=== PATIENT | female | born 1940 | race Caucasian/White ===

== ENCOUNTER 2016-05-09 13:19 | Emergency (ER) | payer OTHER, MEDICARE ==
[~2016-05-09] VITALS: Ht 169.2 cm; Wt 76.4 kg
[2016-05-09 13:33] VITALS: TEMP 36.6; Ht 169.2 cm; Wt 76.4 kg
[2016-05-09] MEDS ORDERED: HYDR50TA3 PO (14:12)
[2016-05-09] MEDS ORDERED: LPT10 PO (14:13)
[2016-05-09] MEDS ORDERED: POTA10CA28 PO ×2 (14:13)
[2016-05-09] MEDS ORDERED: XRL10 PO (14:13)
[2016-05-09] MEDS ORDERED: OXAP600T PO (14:13)
[2016-05-09] MEDS ORDERED: SODIUM CHLORIDE 0.9% 500ML 500 ML IV STA (14:39)
[2016-05-09 14:51] LABS: BASO % 0.2 %; BASO ABS # 0.03 K/uL (0-0.2); COMPLETE YES; EOS % 0.2 %; HEMATOCRIT 29.2 % (37-47); IG% 0.3 %; LYMPH % 14.6 %; LYMPH ABS # 1.86 K/uL (1.2-3.4); MEAN CELL VOLUME 86.1 fL (80-100); MEAN CORPUSCULAR HEMOGLOBIN 28.6 pg (25-34); MEAN CORPUSCULAR HGB CONC 33.2 g/dl (32-36); MEAN PLATELET VOLUME 9.1 fL (7.4-10.4); MONO % 9.6 %; NEUT % 75.1 %; PLATELET COUNT 392 K/uL (130-400); RED BLOOD COUNT 3.39 M/uL (4.2-5.4); WHITE BLOOD COUNT 12.72 K/uL (4.8-10.8)
[2016-05-09 14:55] LABS: BUN/CREATININE RATIO 12.3 (10-20); CALCIUM 9.2 mg/dl (8.5-10.1); CREATININE 0.81 mg/dl (0.60-1.20); POTASSIUM 3.4 mmol/L (3.5-5.1)
[2016-05-09 15:06] LABS: INR 1.2 (0.9-1.1); PARTIAL THROMBOPLASTIN RATIO 1.2; PROTHROMBIN TIME (PATIENT) 13.2 SECONDS (9.0-12.0)
[2016-05-09] MEDS ORDERED: MECLIZINE HCL 25 MG TAB PO STA (16:47)
[2016-05-09 19:27] LABS: HEMATOCRIT 28.1 % (37-47)
[2016-05-09] MEDS ORDERED: MECLIZINE HCL 25 MG TAB PO ONE (20:57)
[2016-05-09 21:05] VITALS: BP 143/67; PULSE 79; O2SAT 94
--- NOTE | 2016-05-09 22:02 | EMERGENCY ROOM VISIT NOTE ---
History Report prepared by Yasemin: Karthik Bailon Under the Supervision of: Dr. Connor Dumont M.D. First contact with patient: 14:20 Chief Complaint: ED VAG BLEEDING Stated Complaint: BLEEDING History of Present Illness The patient is a 75 year old female who presents to the Emergency Room with complaints of worsening vaginal bleeding since March. The bleeding was initially light when at onset. The patient went to [facility] in March after the onset of vaginal bleeding. At that time she was also experiencing shortness of breath, as well as cough and rhinorrhea. She had a CT Chest at [place] and was diagnosed with a PE. The patient is not sure which lung contained the PE. She was also diagnosed with a left leg DVT. She was transferred to [place] from [place], where she had an MRI, multiple CTs, and a pelvic ultrasound. The ultrasound showed a pelvic mass. She had a biopsy, however the patient has not been given the results and is not sure if the mass is malignant. She is scheduled to see Dr. Mcconnell (BALLING HEAD TENDER) in three days. The patient was started on Xarelto for the clots, and notes that the vaginal bleeding has been worse since. Her last dose of Xarelto was at 0800 this morning. She has been saturating at least 4 pads every 24 hours. The blood is dark and contains clots. She has also been becoming gradually weaker and experiencing episodes of lightheadedness for the past two weeks. The patient denies fevers but does feel cold. She denies chest pain. She does have pain in the lower abdomen / pelvis area. Source of History: patient Onset: March Position: other (vaginal) Quality: other (bleeding) Timing: worsening Modifying Factors (Worsening): other (Xarelto) Associated Symptoms: + abdominal pain, + weakness, No chest pain, No fevers Review of Systems See HPI for pertinent positives & negatives. A total of 10 systems reviewed and were otherwise negative. Past Medical & Surgical Medical Problems: (1) DVT (deep venous thrombosis) (2) Pelvic mass (3) Pulmonary embolism Family History No pertinent family history Social History Smoking Status: Never Smoker Current/Historical Medications Scheduled Atorvastatin (Atorvastatin Calcium), 10 MG PO DAILY Hydrochlorothiazide (Hctz), 25 MG PO DAILY Oxaprozin (Daypro), 1,200 MG PO PRN Potassium Chloride (Micro-K Ext Rel), 20 MEQ PO QAM Potassium Chloride (Micro-K Ext Rel), 10 MEQ PO QPM Rivaroxaban (Xarelto), 15 MG PO BID Allergies Coded Allergies: BEE STING (Unverified Allergy, Severe, UNKNOWN, 05/09/16) Physical Exam Vital Signs Date Time Temp Pulse Resp B/P Pulse Ox O2 Delivery O2 Flow Rate FiO2 05/09/16 21:05 79 20 143/67 94 05/09/16 19:36 72 20 134/64 96 Room Air 05/09/16 18:40 75 18 144/70 97 Room Air 05/09/16 16:48 73 16 143/65 98 05/09/16 15:44 77 16 136/68 98 Room Air 05/09/16 14:53 77 18 150/82 100 05/09/16 14:32 84 05/09/16 13:33 36.6 96 18 151/87 96 Room Air Physical Exam Constitutional: Vital signs reviewed. Eyes: Pupils are equal round reactive to light. Conjunctiva are noninjected. ENT: Pharynx is clear without erythema or exudate. Mucous membranes are moist. Neck supple without meningeal signs. Respiratory: Clear to auscultation bilaterally. Breath sounds are equal bilaterally. Cardiovascular: Regular rate and rhythm. No rubs or gallops. GI: Soft, nondistended.Tenderness in the lower abdomen without guarding. Bowel sounds are present. : There is about 10 CCs of dark blood pooling in the vault with clots, no signs of active bright-red bleeding. Musculoskeletal: No peripheral edema. No lower extremity tenderness. Integumentary: No cyanosis. Neurological: The patient is awake and alert. No focal deficits. Psychiatric: Normal affect. Medical Decision & Procedures Laboratory Results 05/09/16 14:20 Red Blood Count 3.39, Mean Corpuscular Volume 86.1, Mean Corpuscular Hemoglobin 28.6, Mean Corpuscular Hemoglobin Concent 33.2, Mean Platelet Volume 9.1, Neutrophils (%) (Auto) 75.1, Lymphocytes (%) (Auto) 14.6, Monocytes (%) (Auto) 9.6, Eosinophils (%) (Auto) 0.2, Basophils (%) (Auto) 0.2, Neutrophils # (Auto) 9.54, Lymphocytes # (Auto) 1.86, Monocytes # (Auto) 1.22, Eosinophils # (Auto) 0.03, Basophils # (Auto) 0.03 05/09/16 19:15 05/09/16 14:20 Test 05/09/16 14:20 White Blood Count 12.72 K/uL (4.8-10.8) Red Blood Count 3.39 M/uL (4.2-5.4) Hemoglobin 9.7 g/dL (12.0-16.0) Hematocrit 29.2 % (37-47) Mean Corpuscular Volume 86.1 fL (80-100) Mean Corpuscular Hemoglobin 28.6 pg (25-34) Mean Corpuscular Hemoglobin Concent 33.2 g/dl (32-36) Platelet Count 392 K/uL (130-400) Mean Platelet Volume 9.1 fL (7.4-10.4) Neutrophils (%) (Auto) 75.1 % Lymphocytes (%) (Auto) 14.6 % Monocytes (%) (Auto) 9.6 % Eosinophils (%) (Auto) 0.2 % Basophils (%) (Auto) 0.2 % Neutrophils # (Auto) 9.54 K/uL (1.4-6.5) Lymphocytes # (Auto) 1.86 K/uL (1.2-3.4) Monocytes # (Auto) 1.22 K/uL (0.11-0.59) Eosinophils # (Auto) 0.03 K/uL (0-0.5) Basophils # (Auto) 0.03 K/uL (0-0.2) RDW Standard Deviation 44.2 fL (36.4-46.3) RDW Coefficient of Variation 14.2 % (11.5-14.5) Immature Granulocyte % (Auto) 0.3 % Immature Granulocyte # (Auto) 0.04 K/uL (0.00-0.02) Prothrombin Time 13.2 SECONDS (9.0-12.0) Prothromb Time International Ratio 1.2 (0.9-1.1) Activated Partial Thromboplast Time 31.5 SECONDS (21.0-31.0) Partial Thromboplastin Ratio 1.2 Anion Gap 11.0 mmol/L (3-11) Est Creatinine Clear Calc Drug Dose 65.4 ml/min Estimated GFR () 83.5 Estimated GFR (Non- 72.1 BUN/Creatinine Ratio 12.3 (10-20) Calcium Level 9.2 mg/dl (8.5-10.1) Laboratory results as reviewed by me. Medications Administered Medications (Trade) Dose Ordered Sig/Mary Route Start Time Stop Time Status Last Admin Dose Admin Meclizine HCl (Antivert Tab) 25 mg NOW STAT PO 05/09/16 16:47 05/09/16 16:49 DC 05/09/16 21:02 25 MG ECG Indication: weakness Rate (beats per minute): 76 Rhythm: sinus rhythm Findings: nonspecific-ST abn (Anterior), PVC ED Course 1422: The patient was evaluated in room C4. A complete history and physical exam was performed. 1439: NSS 500 ml @ 999 mls/hr. 1524: Spoke with JULIETH Ng for Dr. Mcconnell. The patient was diagnosed with bilateral PEs on outpatient CT scan in [place] on April 21, as well as a left lower extremity DVT. She was transferred to [place] for a pelvic mass with vaginal bleeding. The patient had an MRI Pelvis which showed an 11.7 cm left ovarian mass as well as thickening of the endometrial stripe at 1.8 cm. 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 Hgb on april 24 was 11.5. She had a repeat CT Chest on April 25 which showed no evidence of PE. She recommended to me to med-call number to speak with hair blender-onc physician. 1535: Talked with the patient about the results. She stated that she would rather go home and follow up with [facility] on Thursday if they are not going to do anything for her. [facility] is being paged now. 1610: Discussed the case with Dr. Gonzalez, [facility]. They will call back. 1640: Dr. Gonzalez will accept the transfer. The attending physician that will admit the patient is Dr. Bazan. 1647: Meclizine 25 mg PO. 1715: The patient is hemodynamically stable. I discussed the plan for transfer at care at [place]. The patient is agreeable with the transfer. We are waiting on an ambulance to take her. 1855: Multiple ambulances have refused transport to [place]. We are waiting to hear from [place]. I updated her. 1949: I informed her of her second H&H. We are still waiting on an ambulance. 1999: An ambulance was found that will take her. Patient was updated. Medical Decision This is a 75-year-old female who presents with vaginal bleeding. Differential diagnosis includes endometrial cancer, ovarian cancer, anemia, coagulopathy. I did perform a limited focused review of portions of the patient's old chart on the electronic medical record. The patient has had no prior visits to this hospital. I did evaluate the patient as noted above. The patient is presenting with vaginal bleeding that started last month. She was worked up at a hospital in [place] and placed on Xarelto for pulmonary embolus and DVT. She is presenting today because she has developed increased bleeding and lightheadedness and weakness. IV access was established. The patient was placed on a continuous printer slotter helper. She is hemodynamically stable. I did order and personally review the patient's 12-lead EKG as described above. I did order and review the patient's blood work as noted in the electronic medical record. She is anemic with a hemoglobin of 9.7. I did order a type and cross for the patient. I did discuss the test results with the patient. I did discuss the case with the [facility] [place] They stated that the patient was diagnosed with bilateral pulmonary emboli as well as a left-sided DVT. She had an endometrial biopsy which showed clear-cell carcinoma. Her hemoglobin at that time was 11.5 on April 24. She did have a subsequent CAT scan of the chest on April 25 which showed no evidence of PE. I did discuss the case with Dr. Gonzalez who accepted the patient for transfer along with Dr. Anaya I did repeat an H&H and her hemoglobin did drop slightly to 9.4. She did remain hemodynamically stable and so I did not feel immediate transfusion was indicated. The patient was transferred via [facility] ambulance.. Consults Time Called: 1540 Consulting Physician: Dr. Gonzalez, [facility] Returned Call: [id number] 1610: Discussed the case with Dr. Gonzalez, [facility] Impression Primary Impression: Symptomatic anemia Additional Impressions: Endometrial cancer Vaginal bleeding Scribe Attestation The scribe's documentation has been prepared under my direct and personally reviewed by me in its entirety. I confirm that the note above accurately reflects all work, treatment, procedures, and medical decision making performed by me. Departure Information Dispostion Transfer Acute Care Facility Referrals Kyler Calhoun D.O. (PCP) Patient Instructions My [facility] Problem Qualifiers
== END 2016-05-09 21:05 | disposition short-term general hospital (02) ==
LOC: C.EDB 13:23 → C.EDC 21:05
DX: D64.9 Anemia, unspecified (principal); C54.1 Malignant neoplasm of endometrium; N93.9 Abnormal uterine and vaginal bleeding, unspecified; Z86.718 Personal history of other venous thrombosis and embolism; Z86.711 Personal history of pulmonary embolism; Z79.01 Long term (current) use of anticoagulants; Z79.899 Other long term (current) drug therapy